=== PATIENT | male | born 1995 | race African-American/Black ===

== ENCOUNTER 2019-09-17 23:31 | Inpatient (IN) ==
[2019-09-18 04:34] LABS: Anion Gap 7 mmol/L (2-11); BUN/Creatinine Ratio 13.5 (8-20); Blood Urea Nitrogen 13 mg/dL (6-24); CO2 Carbon Dioxide 29 mmol/L (22-32); Calcium 9.6 mg/dL (8.6-10.3); Chloride 103 mmol/L (101-111); EGFR African American 119.6 (>60); EGFR Non-African American 98.9 (>60); Glucose 79 mg/dL (70-100); Potassium 3.9 mmol/L (3.5-5.0); Sodium 139 mmol/L (135-145)
[2019-09-18 04:35] LABS: ALT 19 U/L (7-52); AST 19 U/L (13-39); Albumin 4.7 g/dL (3.2-5.2); Albumin/Globulin Ratio 1.7 (1-3); Alcohol, S < 10 mg/dL (<10); Alkaline Phosphatase 29 U/L (34-104); Globulin 2.8 g/dL (2-4); Total Protein 7.5 g/dL (6.4-8.9)
[2019-09-18 04:37] LABS: ABS Basophils 0.1 10^3/ul (0-0.2); ABS Eosinophils 0.1 10^3/ul (0-0.6); ABS Lymphocytes 2.1 10^3/ul (1.0-4.8); ABS Monocytes 0.6 10^3/ul (0-0.8); Eosinophil % 0.9 %; Hematocrit 43 % (42-52); Hemoglobin 14.5 g/dL (14.0-18.0); Lymphocyte % 23.3 %; Mean Corpuscular HGB Conc 34 g/dL (31-36); Mean Corpuscular Hemoglobin 31 pg (27-31); Mean Corpuscular Volume 91 fL (80-94); Mean Platelet Volume 8.1 fL (7.4-10.4); Platelet Count 223 10^3/uL (150-450); Red Blood Count 4.66 10^6 /uL (4.18-5.48); Red Cell Distribution Width 13 % (10-15)
[2019-09-18 05:09] LABS: TSH (Thyroid Stimulating Horm) 1.93 mcIU/mL (0.34-5.60)
[2019-09-18] MEDS ORDERED: LORazepam 2 mg VIAL 1 ml IM ONE (05:54)
[2019-09-18] MEDS ORDERED: diPHENhydraMINE IV 50 MG/ML 1 ml VIAL (BENADRYL) IM ONE (05:54)
[2019-09-18] MEDS ORDERED: Haloperidol 5 mg/ml SDV IV/IM 5 MG/ML AMP IM ONE (05:54)
[2019-09-18] MEDS ORDERED: LORazepam 2 mg VIAL 1 ml ONE (05:55)
[2019-09-18] MEDS: Nicotine GUM 4MG FRUIT FLAVOR PO PRN ×2 (16:01→20:30)
[2019-09-18] MEDS ORDERED: Al Hydrox/Mg Hydrox/Simet LIQ 30 ML UDC PO PRN (20:28)
[2019-09-18] MEDS ORDERED: chlorproMAZINE TAB* 50 MG Q6H PRN AGITATION PO (21:00)
[2019-09-19] MEDS: Nicotine GUM 2MG FRUIT FLAVOR PO PRN ×6 (06:58→21:44)
[2019-09-19 08:07] LABS: HDL Cholesterol 44.4 mg/dL
[2019-09-19] MEDS: Nicotine PATCH 14 MG/24 HR PATCH TRANSDERM SCH (11:03)
[2019-09-19] MEDS: Vitamin THERAPEUTIC TAB PO SCH (11:03)
[2019-09-20] MEDS: Nicotine GUM 2MG FRUIT FLAVOR PO PRN ×3 (08:29→13:06)
[2019-09-20] MEDS: Vitamin THERAPEUTIC TAB PO SCH (08:30)
[2019-09-20] MEDS: Nicotine PATCH 14 MG/24 HR PATCH TRANSDERM SCH (08:30)
[2019-09-20 09:26] VITALS: BP 143/75
== END 2019-09-20 14:45 | disposition home or self-care (01) | DRG 751 ==
LOC: ED 09-18 02:35 → BSU 09-18 19:23
PROVIDERS: ADMIT Psychiatry & Neurology Psychiatry; ATTEND Psychiatry & Neurology Psychiatry